=== PATIENT | female | born 1950 | race Caucasian/White ===

== ENCOUNTER → 2021-04-28 02:41 | Outpatient (CLI) | payer MEDICARE, SELFPAY ==
[2021-04-29 15:32] LABS: SARS-CoV-2 RNA PCR Negative
== END ==
PROVIDERS: PCP Family Medicine; Visit Provider Family Medicine
DX: R50.9 Fever, unspecified (principal); Z20.822 Contact with and (suspected) exposure to COVID-19
CPT/HCPCS: C9803; U0003; U0005

== ENCOUNTER → 2021-06-26 11:53 | Outpatient (CLI) | payer MEDICARE, SELFPAY ==
--- NOTE | ~2021-06-26 | DEXA_ITS ---
Bone Density Report Name: Marisa Rosario Age: 71 Sex: Female Ethnicity: White Date of : 1950 Indication: osteopenia; height loss; prior fracture; hysterectomy; postmenopausal Referring Provider: GAYATRI, RG Anne Study: Bone densitometry was performed. Exam Date: June 26, 2021 Accession number: [id number] Bone Density: Region BMD T-score Z-score Classification AP Spine (L1-L4) 0.830 -2.0 0.3 Osteopenia Femoral Neck (Left) 0.537 -2.8 -0.8 Osteoporosis Total Hip (Left) 0.688 -2.1 -0.4 Osteopenia Femoral Neck (Right) 0.553 -2.7 -0.7 Osteoporosis Total Hip (Right) 0.685 -2.1 -0.4 Osteopenia Total Hip Mean 0.687 -2.1 -0.4 Osteopenia World Health Organization criteria for BMD impression classify patients as: Normal (T-score at or above -1.0), Osteopenia (T-score between -1.0 and -2.5), or Osteoporosis (T-score at or below -2.5). 10-year Fracture Risk: FRAX not reported because: Some T-score for Spine Total or Hip Total or Femoral Neck at or below -2.5 Prior hip or vertebral fracture Previous Exams: Region Exam Age BMD T-score BMD Change BMD Change Date g/cm2 vs Baseline vs Previous AP Spine(L1-L4) 06/26/2021 71 0.830 -2.0 0.007 0.007 01/17/2019 68 0.823 -2.0 Total Hip(Left) 06/26/2021 71 0.688 -2.1 0.016 0.016 01/17/2019 68 0.672 -2.2 Total Hip(Right) 06/26/2021 71 0.685 -2.1 0.027 0.027 01/17/2019 68 0.658 -2.3 *Denotes significance at 95% confidence level, LSC for AP Spine = 0.022 g/cm2, LSC for Total Hip = 0.027 g/cm2 Clinical Information Provided by Patient: Have had a previous hip or vertebral fracture Has had a low trauma fracture Has used the following medications: Vitamin D Has the following medical conditions: Hysterectomy Patient maximum height was 64 Menopause Age: 53 No regular weight bearing exercise Drinks caffeinated beverages Onset of menses at age 11 Number of children 1 Impression: The patient has established osteoporosis, based on the Left Femoral Neck T-score and the existence of a prior fracture. The patient has risk factors, including: previous fracture. No significant bone loss was observed. Discussion: HIGH RISK OF FRACTURE. BONE DENSITY IS UNDESIRABLY LOW AT ONE OR MORE SKELETAL SITES, CONSISTENT WITH POSTMENOPAUSAL OSTEOPOROSIS. This patient's lowest T-score, in a patient who has previously fractured, meets the World Health Organization's
--- NOTE | ~2021-06-26 | MM_ITS ---
EXAMINATION: MM screening pia BI w samir HISTORY: Screening mammogram, family history of breast cancer in her mother. TECHNIQUE: Craniocaudal and mediolateral oblique 3-D tomosynthesis images were obtained and synthetic 2-D images were generated. CAD analysis was submitted and interpreted. COMPARISON: 01/17/2019 BREAST PARENCHYMAL COMPOSITION: The breasts are heterogeneously dense, which may obscure small masses . FINDINGS: There is no evidence of suspicious mass, calcification, or architectural distortion to sugg est malignancy in either breast. There has been no suspicious interval change. IMPRESSION: 1. No mammographic evidence of malignancy. 2. Recommend routine screening mammography in one year. BI-RADS Category 1: Negative Reviewed, dictated and finalized at location A.
== END ==
PROVIDERS: PCP Family Medicine; Visit Provider Family Medicine
DX: Z12.31 Encounter for screening mammogram for malignant neoplasm of breast (principal); Z78.0 Asymptomatic menopausal state; M85.88 Other specified disorders of bone density and structure, other site; M81.0 Age-related osteoporosis without current pathological fracture; M85.852 Other specified disorders of bone density and structure, left thigh; M85.851 Other specified disorders of bone density and structure, right thigh
CPT/HCPCS: 77063; 77067; 77080

== ENCOUNTER 2021-11-23 00:35 | Day surgery (SDC) | payer MEDICARE, SELFPAY ==
[2021-11-20 15:05] VITALS: BMI 23.4
[2021-11-23] VITALS (15 sets, daily range): BP systolic 119–164; BP diastolic 61–86; PULSE 63–86; RESP 12–22; TEMP 36.9; O2SAT 96–98; BMI 24.2
[2021-11-23 09:03] LABS: Basophils Absolute Auto 0.1 K/mm3 (0.0-0.1); Eosinophils Absolute Auto 0.2 K/mm3 (0-0.3); Eosinophils Percent Auto 2.6 % (0-4.4); Hematocrit 38.4 % (37.0-47.0); Hemoglobin 13.5 g/dL (12.0-15.0); Immature Granulocyte Absolute 0.04 K/mm3 (0.00-0.031); Immature Granulocyte Percent A 0.4 % (0-0.5); Lymphocytes Absolute Auto 1.07 K/mm3 (0.9-3.2); Lymphocytes Percent Auto 11.9 % (18.3-44.2); Mean Corpuscular HGB Conc 35.2 g/dl (32-36); Mean Corpuscular Hemoglobin 31.7 pg (26-34); Mean Corpuscular Volume 90.1 fl (80-100); Mean Platelet Volume 9.3 fl (7.4-10.4); Monocytes Absolute Auto 0.5 K/mm3 (0.1-0.6); Monocytes Percent Auto 5.1 % (2.6-8.5); Neutrophils Absolute Auto 7.1 K/mm3 (1.3-6.7); Platelet Count Result 594 k/mm3 (150-375); Red Blood Count 4.26 M/mm3 (4.2-5.4); Red Cell Distribution Width 14.4 % (11.5-14.5)
[2021-11-23 09:14] LABS: Prothrombin Time 12.8 Seconds (11.1-14.7)
[2021-11-23 09:18] LABS: Anion Gap 6 mmol/L (8-16); Blood Urea Nitrogen 11 mg/dL (7-17); Calcium 8.8 mg/dL (8.4-10.2); Carbon Dioxide 26 mmol/L (22-30); Chloride 106 mmol/L (98-107); Estimated CRCL calculation 45 ml/min; Estimated Glomerular Filt Rate > 60; Glucose 105 mg/dL (65-110); Potassium 3.8 mmol/L (3.4-5.0); Sodium 138 mmol/L (137-145)
--- NOTE | 2021-11-23 10:29 | WPDMODSED ---
Moderate Sedation Note-Pt Data Patient Data Diagnosis: Intermittent chest pain felt to be atypical of angina abnormal stress echo Present Complaint: intermittent chest discomfort Procedure to be performed/Plan: left heart catheterization Allergies Allergy/AdvReac Type Severity Reaction Status Date / Time No Known Allergies Allergy Verified 11/23/21 09:19 Home Medications Medication Instructions Recorded Confirmed Type loratadine 10 mg tablet 10 mg PO DAILY PRN 03/18/20 11/20/21 History Current Medications: Active Medications Sodium Chloride (Normal Saline Iv) 500 mls @ 100 mls/hr IV CONT .Q5H RITCHIE Sedation/Anesthesia: No previous sedation/anesthesia problems (including family history). [facility] Past Medical History Medical History (Updated 06/26/20 @ 10:49 by RUFINA Garcia) Adenomatous colon polyp Age-related osteoporosis without current pathological fracture Hemorrhoids History of basal cell carcinoma Family History Family History Father Carcinoma of colon, Onset Age: 89 Family history of emphysema Mother Family history of malignant neoplasm of male breast Family history of malignant neoplasm of breast in first degree relative, Onset Age: 69 Social History Social History Smoking status: Never smoker Smoking end date: 09/19/70 Alcohol intake: never Substance use type: does not use Living arrangements: alone Spiritual care concerns: No Mod Sed Physical Exam Physical Exam Pre Procedural Exam: Normal: Appearance, Neck, Throat, Airway, Lungs, Heart Size, Heart Rate, Heart Rhythm and Extremities Hours since solid foods: 12 Hours since liquid intake: 12 Mallampati Classification: class II Internal Medicine - PN: Obj Da Vital Signs Vital Signs: Vital Signs - 24 hr 11/23/21 08:57 Temperature 36.9 C Pulse Rate 79 Respiratory Rate 22 H Blood Pressure 144/74 H Pulse Oximetry 96 Meds/Results Medications: Active Medications Generic Name Dose Route Start Last Admin Trade Name Freq PRN Reason Stop Dose Admin Sodium Chloride 500 mls @ 100 mls/hr 11/23/21 08:50 Normal Saline Iv IV CONT .Q5H RITCHIE Labs CBC & Chem 7: 11/23/21 08:49 11/23/21 08:49 Labs: Laboratory Results - last 24 hr 11/23/21 11/23/2122 08:49 08:49 08:49 WBC 9.0 RBC 4.26 Hgb 13.5 Hct 38.4 MCV 90.1 MCH 31.7 MCHC 35.2 RDW 14.4 Plt Count 594 H MPV 9.3 Immature Gran % (Auto) 0.4 Neut % (Auto) 79.0 H Lymph % (Auto) 11.9 L Tucker % (Auto) 5.1 Eos % (Auto) 2.6 Baso % (Auto) 1.0 Lymph # (Auto) 1.07 Tucker # (Auto) 0.5 Eos # (Auto) 0.2 Baso # (Auto) 0.1 Abs Immat Gran (auto) 0.04 H Absolute Neuts (auto) 7.1 H Absolute Nucleated RBC 0.0 Nucleated RBC % 0.0 PT 12.8 INR 1.0 Sodium 138 Potassium 3.8 Chloride 106 Carbon Dioxide 26 Anion Gap 6 L BUN 11 Creatinine 0.80 Estim Creat Clear Calc 45 Estimated GFR > 60 Glucose 105 Calcium 8.8 ASA Classification/Sedation ASA Classification/Sedation ASA Class: II Emergent: No Risks: Risks, benefits and alternatives explained and patient/family accepted plan for sedation. Patient re-evaluated immediately prior to sedation.
--- NOTE | 2021-11-23 10:59 | WPDCARDPROC ---
Cardiac Cath Procedure Note Date of procedure:: 11/23/21 Performing physician:: Edgar Holt MD Indication:: intermittent chest pain abnormal stress echo Brief clinical history:: this is a 71-year-old woman who has been having intermittent chest pain after a stress of the in the family in recent months. The symptoms are atypical of angina by history. Stress echo however was abnormal suggesting inferior ischemia. Procedure Procedure performed:: Left ventriculogram coronary angiogram Sedation/Medication given:: fentanyl 50 mg Versed 2 mg case start time 10:43 a.m. case end time 10:57 a.m. sedation provided by Alice Santos RN, trained observer Access site:: right femoral artery Estimated blood loss:: 25 cc Procedure note:: patient was brought to the cardiac catheterization lab in the postabsorptive state where the right femoral triangle was prepared and draped in the normal fashion. Anesthesia was provided 1% lidocaine infiltrated locally. Using the modified Seldinger technique a 5 [place] sheath was placed into the femoral artery after which left heart catheterization was carried out. A 5 [place] angled pigtail catheter was used to measure left-sided hemodynamics and to inject LV g in the DINERO projection. After this standard 5 [place] FL4 catheter was used to engage the left coronary artery in multiple projections the right coronary artery was engaged and injected using a standard 5 [place] JR4 catheter. The cineangiograms were then reviewed and the case was terminated. An angiogram was done of the femoral artery through the sheath after which I elected to have the sheath removed with direct manual compression. Patient left the medical laboratory technologist without any evident complications and no evidence of a groin hematoma. Findings:: Hemodynamics: The central aortic pressure is 156 over 74 left ventricle 156/0 end diastolic pressure 12. No gradient on pullback across the aortic. Left ventricle: The LV is normal in size all segments contract appropriately the global ejection fraction I visually estimate to be 50-55%. The left main coronary artery is short but widely patent left anterior descending is a medium caliber artery that extends down to but does not go around the apex. The LAD and its branches are smooth and angiographically normal in appearance. Circumflex is a medium caliber artery giving rise to the marginal branches and a posterior branch. The circumflex also smooth and angiographically normal in appearance. The right coronary artery is large caliber and dominant to the posterior circulation. The right coronary artery is smooth and angiographically normal in appearance. Conclusion:: 1. Right coronary dominant circulation with no evidence of coronary artery disease 2. preserved left ventricular systolic function 3. based on these findings the stress echo appears to be a false-positive in the patient's chest pain symptoms are not ischemically mediated Edgar Holt MD [facility]
== END 2021-11-23 17:00 | disposition home or self-care (01) ==
PROVIDERS: PCP Family Medicine; Visit Provider Specialist
PROC: 4A023N7 Measurement of Cardiac Sampling and Pressure, Left Heart, Percutaneous Approach (ICD-10-PCS; CPT 93452; principal; 2021-11-23 10:00)
DX: R94.39 Abnormal result of other cardiovascular function study (principal); R07.89 Other chest pain
CPT/HCPCS: 36415; 80048; 85025; 85610; 93458; C1887; C1894; J1644; J2250; J3010; J7040

== ENCOUNTER 2023-02-09 14:19 | Outpatient (CLI) | payer MEDICARE, SELFPAY ==
[2023-02-09 14:39] LABS: Basophils Absolute Auto 0.1 K/mm3 (0.0-0.1); Eosinophils Absolute Auto 0.2 K/mm3 (0-0.3); Eosinophils Percent Auto 1.8 % (0-4.4); Hematocrit 39.9 % (37.0-47.0); Hemoglobin 13.5 g/dL (12.0-15.0); Immature Granulocyte Absolute 0.02 K/mm3 (0.00-0.031); Immature Granulocyte Percent A 0.2 % (0-0.5); Lymphocytes Absolute Auto 1.03 K/mm3 (0.9-3.2); Lymphocytes Percent Auto 11.4 % (18.3-44.2); Mean Corpuscular HGB Conc 33.8 g/dl (32-36); Mean Corpuscular Hemoglobin 31.1 pg (26-34); Mean Corpuscular Volume 91.9 fl (80-100); Mean Platelet Volume 9.5 fl (7.4-10.4); Monocytes Absolute Auto 0.4 K/mm3 (0.1-0.6); Monocytes Percent Auto 4.7 % (2.6-8.5); Neutrophils Absolute Auto 7.3 K/mm3 (1.3-6.7); Neutrophils Percent Auto 80.9 % (45.5-73.1); Platelet Count Result 674 k/mm3 (150-375); Red Blood Count 4.34 M/mm3 (4.2-5.4); Red Cell Distribution Width 14.2 % (11.5-14.5); White Blood Count 9.1 K/mm3 (4.5-10.0)
[2023-02-09 18:02] LABS: Iron 122 ug/dL (37-170)
[2023-02-09 18:12] LABS: Percent Iron Saturation 27 % (20-50)
[2023-02-09 18:23] LABS: Alanine Aminotransferase 27 U/L (6-35); Albumin Level 4.4 g/dL (3.5-5.1); Alkaline Phosphatase 94 U/L (38-126); Anion Gap 6 mmol/L (8-16); Aspartate Amino Transferase 34 U/L (14-36); Bilirubin,Total 0.8 mg/dL (0.2-1.3); Blood Urea Nitrogen 14 mg/dL (7-17); Carbon Dioxide 29 mmol/L (22-30); Chloride 103 mmol/L (98-107); Estimated Glomerular Filt Rate > 60; Glucose 95 mg/dL (65-110); Potassium 3.9 mmol/L (3.4-5.0); Sodium 138 mmol/L (137-145)
== END 2023-02-09 14:20 | disposition home or self-care (01) ==
LOC: ANHLAB 14:20
PROVIDERS: PCP Nurse Practitioner Family; Visit Provider Internal Medicine Hematology & Oncology
DX: D47.3 Essential (hemorrhagic) thrombocythemia (principal)
CPT/HCPCS: 36415; 80053; 82728; 83540; 83550; 85025

== ENCOUNTER 2023-03-29 11:53 | Outpatient (CLI) | payer MEDICARE, SELFPAY ==
[2023-03-29 12:00] LABS: Kit Draw Collected
== END 2023-03-29 11:54 | disposition home or self-care (01) ==
LOC: ANHLAB 11:54
PROVIDERS: PCP Nurse Practitioner Family; Visit Provider Internal Medicine Hematology & Oncology
DX: L98.9 Disorder of the skin and subcutaneous tissue, unspecified (principal)
CPT/HCPCS: 36415

== ENCOUNTER 2023-04-20 13:16 | Outpatient (CLI) | payer MEDICARE, SELFPAY ==
[2023-04-20 13:28] LABS: Basophils Absolute Auto 0.1 K/mm3 (0.0-0.1); Basophils Percent Auto 0.9 % (0.2-1.2); Eosinophils Absolute Auto 0.2 K/mm3 (0-0.3); Eosinophils Percent Auto 1.8 % (0-4.4); Hematocrit 39.1 % (37.0-47.0); Hemoglobin 13.4 g/dL (12.0-15.0); Immature Granulocyte Absolute 0.04 K/mm3 (0.00-0.031); Immature Granulocyte Percent A 0.4 % (0-0.5); Lymphocytes Absolute Auto 0.95 K/mm3 (0.9-3.2); Lymphocytes Percent Auto 9.6 % (18.3-44.2); Mean Corpuscular HGB Conc 34.3 g/dl (32-36); Mean Corpuscular Hemoglobin 32.1 pg (26-34); Mean Corpuscular Volume 93.5 fl (80-100); Mean Platelet Volume 9.1 fl (7.4-10.4); Monocytes Absolute Auto 0.5 K/mm3 (0.1-0.6); Monocytes Percent Auto 4.9 % (2.6-8.5); Neutrophils Absolute Auto 8.2 K/mm3 (1.3-6.7); Neutrophils Percent Auto 82.4 % (45.5-73.1); Platelet Count Result 617 k/mm3 (150-375); Red Blood Count 4.18 M/mm3 (4.2-5.4); Red Cell Distribution Width 15.3 % (11.5-14.5); White Blood Count 9.9 K/mm3 (4.5-10.0)
[2023-04-20 13:31] LABS: Blood Urea Nitrogen 12 mg/dL (8-26); Carbon Dioxide 26 mmol/L (22-30); Chloride 101 mmol/L (98-109); Estimated Glomerular Filt Rate > 60; Glucose 102 mg/dL (70-105); Ionized Calcium (POC) 1.25 mmol/L (1.11-1.31); Potassium 3.9 mmol/L (3.5-4.9); Sodium 139 mmol/L (138-146)
== END 2023-04-20 13:17 | disposition home or self-care (01) ==
LOC: ANHLAB 13:17
PROVIDERS: PCP Nurse Practitioner Family; Visit Provider Internal Medicine Hematology & Oncology
DX: D47.3 Essential (hemorrhagic) thrombocythemia (principal)
CPT/HCPCS: 36415; 80047; 85025

== ENCOUNTER 2023-05-17 14:15 | Outpatient (CLI) | payer MEDICARE, SELFPAY ==
[2023-05-17 14:26] LABS: Hematocrit 39.2 % (37.0-47.0); Hemoglobin 13.8 g/dL (12.0-15.0); Mean Corpuscular HGB Conc 35.2 g/dl (32-36); Mean Corpuscular Hemoglobin 32.7 pg (26-34); Mean Corpuscular Volume 92.9 fl (80-100); Mean Platelet Volume 9.1 fl (7.4-10.4); Platelet Count Result 594 k/mm3 (150-375); Red Blood Count 4.22 M/mm3 (4.2-5.4); Red Cell Distribution Width 15.3 % (11.5-14.5); White Blood Count 9.1 K/mm3 (4.5-10.0)
[2023-05-17 14:27] LABS: Basophils Absolute Auto 0.1 K/mm3 (0.0-0.1); Basophils Percent Auto 1.3 % (0.2-1.2); Eosinophils Absolute Auto 0.2 K/mm3 (0-0.3); Eosinophils Percent Auto 2.7 % (0-4.4); Immature Granulocyte Absolute 0.03 K/mm3 (0.00-0.031); Immature Granulocyte Percent A 0.3 % (0-0.5); Lymphocytes Absolute Auto 1.06 K/mm3 (0.9-3.2); Lymphocytes Percent Auto 11.7 % (18.3-44.2); Monocytes Absolute Auto 0.5 K/mm3 (0.1-0.6); Monocytes Percent Auto 5.2 % (2.6-8.5); Neutrophils Absolute Auto 7.1 K/mm3 (1.3-6.7); Neutrophils Percent Auto 78.8 % (45.5-73.1)
[2023-05-17 14:32] LABS: Blood Urea Nitrogen 9 mg/dL (8-26); Carbon Dioxide 29 mmol/L (22-30); Chloride 99 mmol/L (98-109); Estimated Glomerular Filt Rate 48; Glucose 89 mg/dL (70-105); Ionized Calcium (POC) 1.19 mmol/L (1.11-1.31); Potassium 3.6 mmol/L (3.5-4.9); Sodium 139 mmol/L (138-146)
== END 2023-05-17 14:16 | disposition home or self-care (01) ==
LOC: ANHLAB 14:17
PROVIDERS: PCP Nurse Practitioner Family; Visit Provider Internal Medicine Hematology & Oncology
DX: D47.3 Essential (hemorrhagic) thrombocythemia (principal)
CPT/HCPCS: 36415; 80047; 85025

== ENCOUNTER 2023-06-14 13:10 | Outpatient (CLI) | payer MEDICARE, SELFPAY ==
[2023-06-14 13:22] LABS: Basophils Absolute Auto 0.1 K/mm3 (0.0-0.1); Basophils Percent Auto 0.9 % (0.2-1.2); Eosinophils Absolute Auto 0.2 K/mm3 (0-0.3); Hematocrit 38.9 % (37.0-47.0); Hemoglobin 13.4 g/dL (12.0-15.0); Immature Granulocyte Absolute 0.03 K/mm3 (0.00-0.031); Immature Granulocyte Percent A 0.3 % (0-0.5); Lymphocytes Absolute Auto 1.19 K/mm3 (0.9-3.2); Lymphocytes Percent Auto 12.8 % (18.3-44.2); Mean Corpuscular HGB Conc 34.4 g/dl (32-36); Mean Corpuscular Volume 95.8 fl (80-100); Monocytes Absolute Auto 0.4 K/mm3 (0.1-0.6); Monocytes Percent Auto 4.5 % (2.6-8.5); Neutrophils Absolute Auto 7.4 K/mm3 (1.3-6.7); Neutrophils Percent Auto 79.5 % (45.5-73.1); Platelet Count Result 561 k/mm3 (150-375); Red Blood Count 4.06 M/mm3 (4.2-5.4); Red Cell Distribution Width 15.6 % (11.5-14.5); White Blood Count 9.3 K/mm3 (4.5-10.0)
[2023-06-14 13:27] LABS: Blood Urea Nitrogen 12 mg/dL (8-26); Carbon Dioxide 27 mmol/L (22-30); Chloride 101 mmol/L (98-109); Estimated Glomerular Filt Rate > 60; Glucose 116 mg/dL (70-105); Ionized Calcium (POC) 1.15 mmol/L (1.11-1.31); Potassium 3.7 mmol/L (3.5-4.9); Sodium 139 mmol/L (138-146)
== END 2023-06-14 13:11 | disposition home or self-care (01) ==
LOC: ANHLAB 13:13
PROVIDERS: PCP Nurse Practitioner Family; Visit Provider Internal Medicine Hematology & Oncology
DX: D47.3 Essential (hemorrhagic) thrombocythemia (principal)
CPT/HCPCS: 36415; 80047; 85025

== ENCOUNTER → 2023-06-20 13:58 | Outpatient (CLI) | payer MEDICARE, SELFPAY ==
--- NOTE | ~2023-06-20 | MM_ITS ---
EXAMINATION: MM screening pia BI w samir HISTORY: Screening mammogram, family history of breast cancer in her mother. TECHNIQUE: Craniocaudal and mediolateral oblique 3-D tomosynthesis images were obtained and synthetic 2-D images were generated. CAD analysis was submitted and interpreted. COMPARISON: 06/26/2021, 01/17/2019 BREAST PARENCHYMAL COMPOSITION: The breasts are heterogeneously dense, which may obscure small masses . FINDINGS: No suspicious mass, calcification, or architectural distortion are identified in either cooper ast to suggest malignancy. There has been no suspicious interval change. IMPRESSION: 1. No mammographic evidence of malignancy. 2. Recommend routine screening mammography in one year. BI-RADS Category 1: Negative Reviewed, dictated and finalized at location A.
== END ==
PROVIDERS: PCP Family Medicine; Visit Provider Family Medicine
DX: Z12.31 Encounter for screening mammogram for malignant neoplasm of breast (principal)
CPT/HCPCS: 77063; 77067

== ENCOUNTER 2023-07-18 14:09 | Outpatient (CLI) | payer MEDICARE, SELFPAY ==
[2023-07-18 14:27] LABS: Basophils Absolute Auto 0.1 K/mm3 (0.0-0.1); Basophils Percent Auto 0.9 % (0.2-1.2); Eosinophils Absolute Auto 0.2 K/mm3 (0-0.3); Eosinophils Percent Auto 1.6 % (0-4.4); Immature Granulocyte Absolute 0.04 K/mm3 (0.00-0.031); Immature Granulocyte Percent A 0.4 % (0-0.5); Lymphocytes Absolute Auto 1.07 K/mm3 (0.9-3.2); Lymphocytes Percent Auto 11.2 % (18.3-44.2); Mean Corpuscular HGB Conc 34.2 g/dl (32-36); Mean Corpuscular Hemoglobin 33.3 pg (26-34); Mean Corpuscular Volume 97.4 fl (80-100); Mean Platelet Volume 9.5 fl (7.4-10.4); Monocytes Absolute Auto 0.4 K/mm3 (0.1-0.6); Monocytes Percent Auto 4.5 % (2.6-8.5); Neutrophils Absolute Auto 7.7 K/mm3 (1.3-6.7); Neutrophils Percent Auto 81.4 % (45.5-73.1); Platelet Count Result 592 k/mm3 (150-375); Red Cell Distribution Width 14.7 % (11.5-14.5); White Blood Count 9.5 K/mm3 (4.5-10.0)
[2023-07-18 14:31] LABS: Blood Urea Nitrogen 10 mg/dL (8-26); Carbon Dioxide 28 mmol/L (22-30); Chloride 100 mmol/L (98-109); Estimated Glomerular Filt Rate > 60; Glucose 97 mg/dL (70-105); Ionized Calcium (POC) 1.18 mmol/L (1.11-1.31); Potassium 3.4 mmol/L (3.5-4.9); Sodium 139 mmol/L (138-146)
== END 2023-07-18 14:10 | disposition home or self-care (01) ==
LOC: ANHLAB 14:12
PROVIDERS: Visit Provider Internal Medicine Hematology & Oncology
DX: D47.3 Essential (hemorrhagic) thrombocythemia (principal)
CPT/HCPCS: 36415; 80047; 85025

== ENCOUNTER → 2023-07-20 12:23 | Outpatient (CLI) | payer MEDICARE, SELFPAY ==
--- NOTE | ~2023-07-20 | US_ITS ---
EXAMINATION: US soft tissue head and neck DATE: 07/20/2023 12:53 INDICATION: Right cervical lymphadenopathy. Trigeminal neuralgia. TECHNIQUE: Multiple grayscale and Doppler ultrasound images of the head and neck were obtained. COMPARISON: None FINDINGS: There are normal lymph nodes in the neck bilaterally. IMPRESSION: 1. No abnormal neck mass or lymphadenopathy. Reviewed, dictated and finalized at location E.
== END ==
PROVIDERS: PCP Family Medicine; Visit Provider Nurse Practitioner Family
DX: G50.0 Trigeminal neuralgia (principal)
CPT/HCPCS: 76536

== ENCOUNTER 2023-08-18 14:18 | Outpatient (CLI) | payer MEDICARE, SELFPAY ==
[2023-08-18 14:31] LABS: Basophils Absolute Auto 0.1 K/mm3 (0.0-0.1); Eosinophils Absolute Auto 0.3 K/mm3 (0-0.3); Eosinophils Percent Auto 2.8 % (0-4.4); Hematocrit 35.9 % (37.0-47.0); Hemoglobin 12.4 g/dL (12.0-15.0); Immature Granulocyte Absolute 0.04 K/mm3 (0.00-0.031); Immature Granulocyte Percent A 0.4 % (0-0.5); Lymphocytes Absolute Auto 1.04 K/mm3 (0.9-3.2); Lymphocytes Percent Auto 10.2 % (18.3-44.2); Mean Corpuscular HGB Conc 34.5 g/dl (32-36); Mean Corpuscular Hemoglobin 32.8 pg (26-34); Monocytes Absolute Auto 0.5 K/mm3 (0.1-0.6); Neutrophils Absolute Auto 8.2 K/mm3 (1.3-6.7); Neutrophils Percent Auto 80.6 % (45.5-73.1); Platelet Count Result 338 k/mm3 (150-375); Red Blood Count 3.78 M/mm3 (4.2-5.4); Red Cell Distribution Width 13.6 % (11.5-14.5); White Blood Count 10.2 K/mm3 (4.5-10.0)
[2023-08-18 14:35] LABS: Blood Urea Nitrogen 6 mg/dL (8-26); Carbon Dioxide 27 mmol/L (22-30); Chloride 100 mmol/L (98-109); Estimated Glomerular Filt Rate > 60; Glucose 104 mg/dL (70-105); Ionized Calcium (POC) 1.22 mmol/L (1.11-1.31); Potassium 3.3 mmol/L (3.5-4.9); Sodium 140 mmol/L (138-146)
== END 2023-08-18 14:19 | disposition home or self-care (01) ==
LOC: ANHLAB 14:20
PROVIDERS: PCP Family Medicine; Visit Provider Internal Medicine Hematology & Oncology
DX: D47.3 Essential (hemorrhagic) thrombocythemia (principal)
CPT/HCPCS: 36415; 80047; 85025

== ENCOUNTER 2023-08-26 08:20 | Outpatient (CLI) | payer MEDICARE, SELFPAY ==
--- NOTE | ~2023-08-26 | CT_ITS ---
CT of the Abdomen and Pelvis: Indication: Abdominal pain Technique: 2.5 mm axial scans were obtained through the abdomen and pelvis following intravenous adm inistration of 100 cc of Omnipaque 350. Dose reduction technique was used on this scan by utilizing a utomated exposure control and iterative reconstruction technique. The dose-length product (DLP) was 3 54.62 mGy-cm. Findings: Scans through the lung bases are unremarkable. The liver, pancreas, adrenals and kidneys are within normal limits. Small calcified gallstones are pr esent. There is a 2.8 cm hypodense splenic lesion present, as well as several additional tiny subcent imeter low-density splenic lesions. No evidence of aortic aneurysm. No lymphadenopathy. Possible extensive large bowel wall thickening versus underdistention. No bowel obstruction. No absce ss or free air. Images through the pelvis were performed. Urinary bladder unremarkable. No pelvic mass seen. No ascit es. Mild compression deformity of L1 is present, likely chronic. Impression: Suspected extensive large bowel wall thickening, most consistent with infectious/inflammatory colitis . Artifactual thickening due to underdistention is a potential alternative consideration. Correlate c linically. Cholelithiasis. C-spine lesions, as above, indeterminate, though statistically most likely benign. Reviewed, dictated and finalized at location . [employer] Impression: Suspected extensive large bowel wall thickening, most consistent with infectiou s/inflammatory colitis. Artifactual thickening due to underdistention is a pote ntial alternative consideration. Correlate clinically. Cholelithiasis. C-spine lesions, as above, indeterminate, though statistically most likely jossy gn.
== END 2023-08-26 08:21 | disposition home or self-care (01) ==
PROVIDERS: PCP Family Medicine; Visit Provider Internal Medicine Hematology & Oncology
DX: R10.30 Lower abdominal pain, unspecified (principal); K80.20 Calculus of gallbladder without cholecystitis without obstruction
CPT/HCPCS: 74177; Q9967

== ENCOUNTER 2023-09-09 12:27 | Outpatient (CLI) | payer MEDICARE, SELFPAY ==
[2023-09-09 12:49] LABS: Basophils Absolute Auto 0.1 K/mm3 (0.0-0.1); Eosinophils Absolute Auto 0.2 K/mm3 (0-0.3); Eosinophils Percent Auto 2.3 % (0-4.4); Hematocrit 35.9 % (37.0-47.0); Hemoglobin 12.1 g/dL (12.0-15.0); Immature Granulocyte Absolute 0.04 K/mm3 (0.00-0.031); Immature Granulocyte Percent A 0.4 % (0-0.5); Lymphocytes Absolute Auto 1.01 K/mm3 (0.9-3.2); Mean Corpuscular HGB Conc 33.7 g/dl (32-36); Mean Platelet Volume 10.4 fl (7.4-10.4); Monocytes Absolute Auto 0.6 K/mm3 (0.1-0.6); Neutrophils Absolute Auto 7.3 K/mm3 (1.3-6.7); Neutrophils Percent Auto 79.3 % (45.5-73.1); Platelet Count Result 362 k/mm3 (150-375); Red Blood Count 3.78 M/mm3 (4.2-5.4); Red Cell Distribution Width 13.5 % (11.5-14.5); White Blood Count 9.2 K/mm3 (4.5-10.0)
[2023-09-09 16:03] LABS: Anion Gap 8 mmol/L (8-16); Blood Urea Nitrogen 12 mg/dL (7-17); Calcium 9.2 mg/dL (8.4-10.2); Carbon Dioxide 27 mmol/L (22-30); Chloride 104 mmol/L (98-107); Estimated Glomerular Filt Rate > 60; Glucose 99 mg/dL (65-110); Potassium 3.9 mmol/L (3.4-5.0); Sodium 139 mmol/L (137-145)
== END 2023-09-09 12:28 | disposition home or self-care (01) ==
LOC: ANHLAB 12:29
PROVIDERS: PCP Family Medicine; Visit Provider Internal Medicine Hematology & Oncology
DX: D47.3 Essential (hemorrhagic) thrombocythemia (principal)
CPT/HCPCS: 36415; 80048; 85025

== ENCOUNTER 2023-09-29 11:17 | Outpatient (CLI) | payer MEDICARE, SELFPAY ==
[2023-09-29 11:32] LABS: Basophils Absolute Auto 0.1 K/mm3 (0.0-0.1); Basophils Percent Auto 1.2 % (0.2-1.2); Eosinophils Absolute Auto 0.2 K/mm3 (0-0.3); Eosinophils Percent Auto 2.1 % (0-4.4); Hematocrit 35.8 % (37.0-47.0); Hemoglobin 12.3 g/dL (12.0-15.0); Immature Granulocyte Absolute 0.03 K/mm3 (0.00-0.031); Immature Granulocyte Percent A 0.3 % (0-0.5); Lymphocytes Absolute Auto 1.21 K/mm3 (0.9-3.2); Lymphocytes Percent Auto 13.5 % (18.3-44.2); Mean Corpuscular HGB Conc 34.4 g/dl (32-36); Mean Corpuscular Hemoglobin 31.9 pg (26-34); Mean Corpuscular Volume 92.7 fl (80-100); Mean Platelet Volume 10.1 fl (7.4-10.4); Monocytes Absolute Auto 0.5 K/mm3 (0.1-0.6); Monocytes Percent Auto 5.7 % (2.6-8.5); Neutrophils Absolute Auto 6.9 K/mm3 (1.3-6.7); Neutrophils Percent Auto 77.2 % (45.5-73.1); Platelet Count Result 600 k/mm3 (150-375); Red Blood Count 3.86 M/mm3 (4.2-5.4); Red Cell Distribution Width 13.3 % (11.5-14.5); White Blood Count 8.9 K/mm3 (4.5-10.0)
[2023-09-29 11:36] LABS: Blood Urea Nitrogen 13 mg/dL (8-26); Carbon Dioxide 26 mmol/L (22-30); Chloride 102 mmol/L (98-109); Estimated Glomerular Filt Rate > 60; Glucose 106 mg/dL (70-105); Potassium 3.9 mmol/L (3.5-4.9); Sodium 141 mmol/L (138-146)
== END 2023-09-29 11:18 | disposition home or self-care (01) ==
LOC: ANHLAB 11:19
PROVIDERS: PCP Family Medicine; Visit Provider Internal Medicine Hematology & Oncology
DX: D47.3 Essential (hemorrhagic) thrombocythemia (principal)
CPT/HCPCS: 36415; 80047; 85025

== ENCOUNTER 2023-11-10 11:10 | Outpatient (CLI) | payer MEDICARE, SELFPAY ==
[2023-11-10 11:31] LABS: Basophils Absolute Auto 0.1 K/mm3 (0.0-0.1); Eosinophils Absolute Auto 0.2 K/mm3 (0-0.3); Eosinophils Percent Auto 2.4 % (0-4.4); Hematocrit 37.1 % (37.0-47.0); Hemoglobin 12.6 g/dL (12.0-15.0); Immature Granulocyte Absolute 0.03 K/mm3 (0.00-0.031); Immature Granulocyte Percent A 0.4 % (0-0.5); Lymphocytes Absolute Auto 1.02 K/mm3 (0.9-3.2); Lymphocytes Percent Auto 12.2 % (18.3-44.2); Mean Corpuscular Hemoglobin 31.3 pg (26-34); Mean Corpuscular Volume 92.1 fl (80-100); Mean Platelet Volume 10.2 fl (7.4-10.4); Monocytes Absolute Auto 0.5 K/mm3 (0.1-0.6); Monocytes Percent Auto 5.6 % (2.6-8.5); Neutrophils Absolute Auto 6.6 K/mm3 (1.3-6.7); Neutrophils Percent Auto 78.4 % (45.5-73.1); Platelet Count Result 386 k/mm3 (150-375); Red Blood Count 4.03 M/mm3 (4.2-5.4); Red Cell Distribution Width 13.5 % (11.5-14.5); White Blood Count 8.4 K/mm3 (4.5-10.0)
[2023-11-10 11:35] LABS: Blood Urea Nitrogen 14 mg/dL (8-26); Carbon Dioxide 30 mmol/L (22-30); Chloride 101 mmol/L (98-109); Estimated Glomerular Filt Rate > 60; Glucose 70 mg/dL (70-105); Ionized Calcium (POC) 1.27 mmol/L (1.11-1.31); Potassium 3.9 mmol/L (3.5-4.9); Sodium 141 mmol/L (138-146)
== END 2023-11-10 11:11 | disposition home or self-care (01) ==
LOC: ANHLAB 11:13
PROVIDERS: PCP Family Medicine; Visit Provider Internal Medicine Hematology & Oncology
DX: D47.3 Essential (hemorrhagic) thrombocythemia (principal)
CPT/HCPCS: 36415; 80047; 85025

== ENCOUNTER 2023-11-19 11:11 | Emergency (ER) | payer MEDICARE, SELFPAY ==
--- NOTE | 2023-11-19 11:22 | ED.GENADULT ---
HPI - General Adult General Chief complaint: Upper Respiratory Infection Stated complaint: sore throat,cough Source: patient, RN notes reviewed and old records reviewed Mode of arrival: ambulatory Limitations: no limitations History of Present Illness HPI narrative: 73-year-old female presents to [facility] with complaint of cough, congestion, sore throat, fatigue, myalgias that started Tuesday. Patient states taking [id number] medications with no relief. Patient denies chest pain, shortness of breath, weakness, dizziness. Related Data Home Medications Medication Instructions Recorded Confirmed anagrelide 0.5 mg capsule 0.5 mg PO DIRECTED 11/19/23 pantoprazole 40 mg tablet,delayed 40 mg PO DAILY 11/19/23 11/19/23 release Allergies Allergy/AdvReac Type Severity Reaction Status Date / Time No Known Allergies Allergy Verified 11/19/23 11:17 Review of Systems Constitutional: Constitutional: Reports no additional constitutional complaints, Reports body ache(s), Denies chills, Reports fatigue, Denies fever(s) and Denies headache(s) Eyes: Eyes: Reports no additional eye complaints and Denies blurry vision ENT: Reports system reviewed and no additional complaints, except as documented, Denies vertigo, Denies dizziness, Denies ear discharge, Denies otalgia, Denies facial pain, Denies headache(s), Reports nasal congestion, Reports nasal discharge, Denies sinus pain, Reports sinus pressure and Reports sore throat Cardiovascular: Cardiovascular: Reports no additional cardiovascular complaints, Denies chest pain, Denies chest pain at rest, Denies rapid heart rate and Denies dyspnea Respiratory: Respiratory: Reports no additional respiratory complaints, Reports chest congestion, Reports cough, Denies pain on inspiration, Denies pain with cough and Denies dyspnea Gastrointestinal: Gastrointestinal: Denies abdominal pain, Denies diarrhea, Denies nausea and Denies vomiting Integumentary/Breasts: Skin/Breast: Denies rash Neurologic: Reports system reviewed and no additional complaints, except as documented, Denies vertigo, Denies dizziness and Denies headache(s) Endocrine: Endocrine: Denies fatigue PMFSH Past Medical History Medical History Adenomatous colon polyp Age-related osteoporosis without current pathological fracture Hemorrhoids History of basal cell carcinoma Family History Family History Father Carcinoma of colon, Onset Age: 89 Family history of emphysema Mother Family history of malignant neoplasm of male breast Family history of malignant neoplasm of breast in first degree relative, Onset Age: 69 Social History Social History Smoking status: Never smoker Smoking end date: 09/19/70 Alcohol intake: never Substance use type: does not use Lack of Transportation: No Lack of Food: Never True Current Housing: I Have Housing Concerned About Future Housing: No Difficulty Paying Gas/Electric Bills: No Difficulty Paying for Meds: No Currently Unemployed: No Education: High School Diploma/GED Difficulty w/ Childcare or Family Care: No Living arrangements: alone Spiritual care concerns: No Comments At the time of my signature, I reviewed and agree with the nursing past medical, surgical, social, and family history. There is no relevant family history pertinent to the patient complaint. Exam Const: General: cooperative, healthy appearing, no acute distress and well nourished Nutritional Appearance: well nourished Orientation/consciousness: patient oriented x3 Limitations: no limitations HENMT: Head: normal to inspection and normocephalic Ears: external ears normal, TM's normal bilaterally, EAC's normal and mastoids normal Face/Nose/Sinus: Normal nasal mucous membranes and turbinates prese
[2023-11-19 11:25] VITALS: BP 157/83; PULSE 136; RESP 20; TEMP 36.7; O2SAT 97
--- NOTE | 2023-11-19 11:53 | ECG_ITS ---
Measurements Intervals [place] Rate: 123 P: 37 UT: 179 QRS: -52 QRSD: 117 T: 73 QT: 351 QTc: 504 Interpretive Statements SINUS TACHYCARDIA LEFT ANTERIOR FASCICULAR BLOCK LEFT VENTRICULAR HYPERTROPHY AND ST-T CHANGE CANNOT RULE OUT SEPTAL INFARCT, AGE INDETERMINATE BASELINE ARTIFACT- I, II, III, AVR, AVL, AVF, V2, V5-V6 ABNORMAL ECG NO PREVIOUS ECG AVAILABLE FOR COMPARISON Electronically Signed On 11-19-2023 16:54:54 EXAMINATION PROCTOR by Kuldeep Dumont D.O.
[2023-11-19 12:15] VITALS: PULSE 122
== END 2023-11-19 12:15 | disposition home or self-care (01) ==
PROVIDERS: Emergency Provider Registered Nurse; PCP Family Medicine
DX: B34.9 Viral infection, unspecified (principal); Z20.822 Contact with and (suspected) exposure to COVID-19; Z87.891 Personal history of nicotine dependence; M81.0 Age-related osteoporosis without current pathological fracture; Z85.828 Personal history of other malignant neoplasm of skin
CPT/HCPCS: 87081; 87426; 87804; 87880; 93005; 99213; G0463

== ENCOUNTER 2023-12-17 16:44 | Emergency (ER) | payer MEDICARE, SELFPAY ==
[2023-12-17] VITALS (11 sets, daily range): BP systolic 165–184; BP diastolic 82–90; PULSE 76–119; RESP 17–25; TEMP 36.5; O2SAT 96–100
--- NOTE | ~2023-12-17 | CT_ITS ---
EXAMINATION: CTA chest PE protocol DATE: 12/18/2023 02:26 INDICATION: Tachycardia. Elevated d-dimer. Hypertension. TECHNIQUE: Computed tomography angiography (CTA) of the chest was performed with 100 mL Omnipaque-350 intravenous contrast timed to evaluate the pulmonary arteries. Coronal maximum intensity projection 3D-reconstructions were created by the technologist. Automated exposure control and iterative reconst ruction technique were employed. Exam dose: 175.00 mGy-cm total exam DLP. COMPARISON: 12/17/2023 PA and lateral chest FINDINGS: There is diagnostic contrast enhancement of the pulmonary arteries and no evidence of pulmo nary embolism. No hilar or mediastinal mass lesion or lymphadenopathy. No thoracic aortic aneurysm. Mild cardiomegal y. No pericardial or pleural effusion. Discoid atelectasis or scarring, left lower lobe. Mild bilateral apical scarring. No pulmonary consol idation. Stable hypoattenuating splenic lesion compared to 08/26/2023, likely benign. IMPRESSION: No evidence of pulmonary embolism Reviewed, dictated and finalized at Location A. Reviewed, dictated and finalized at location A.
--- NOTE | ~2023-12-17 | XR_ITS ---
XR chest 2V DATE: 12/17/2023 22:43 INDICATION: Tachycardia. Elevated d-dimer. TECHNIQUE: PA and lateral views COMPARISON: None FINDINGS: Bilateral hyperinflation. Mild bilateral apical scarring. No pulmonary infiltrate or consol idation, pleural effusion or pulmonary vascular congestion or pneumothorax is detected. Borderline heart size. Aortic arch calcification, mild aortic unfolding. No hilar or mediastinal enla rgement. Mild thoracic dextroscoliosis. Osteopenia. IMPRESSION: Bilateral hyperinflation; no active pulmonary disease Reviewed, dictated and finalized at location A.
--- NOTE | 2023-12-17 16:52 | ECG_ITS ---
Measurements Intervals [place] Rate: 97 P: -3 NM: 180 QRS: -44 QRSD: 126 T: 73 QT: 371 QTc: 472 Interpretive Statements SINUS RHYTHM LEFT AXIS DEVIATION LEFT ATRIAL ENLARGEMENT LEFT VENTRICULAR HYPERTROPHY AND ST-T CHANGE CONSIDER INFERIOR INFARCT, AGE INDETERMINATE CONSIDER ANTERIOR INFARCT, AGE INDETERMINATE ABNORMAL ECG COMPARED TO ECG 11/19/2023 12:04:17 SINUS RHYTHM NOW PRESENT Electronically Signed On 12-17-2023 17:13:53 CDT by Kuldeep Dumont D.O.
--- NOTE | 2023-12-17 22:04 | ED.GENADULT ---
HPI - General Adult General Chief complaint: Recheck/Abnormal Lab/Rx Stated complaint: heart racing/ htn Time Seen by Provider: 12/17/23 22:03 Source: patient and family (daughter in law) Mode of arrival: ambulatory Limitations: no limitations History of Present Illness HPI narrative: Patient presents with episode of her heart racing. She denies any chest pain. She will occasionally be short of breath with episodes. Has noticed a few days of hypertension. No diarrhea. She take inagrilide to help her platelet count in the setting of a JAK2 mutation. Has previously see a purchasing expeditor and underwent catheterization. Also wore an event monitor many years ago for palpatations. Recently diagnosed with the flu and had a fever and cough. Generally feels weak. Her Fitbit watch showed a heart rate of 123 at home. Episodes last a few minutes , usually once a day or every few days but more frequent thus prompting ED visit. Her PCP will soon be changing from Manuela Brush (leaving soon) to Dr Yelitza Marroquin in [place] next month. Related Data Home Medications Medication Instructions Recorded Confirmed anagrelide 0.5 mg capsule 0.5 mg PO DIRECTED 11/19/23 pantoprazole 40 mg tablet,delayed 40 mg PO DAILY 11/19/23 11/19/23 release Allergies Allergy/AdvReac Type Severity Reaction Status Date / Time No Known Allergies Allergy Verified 11/19/23 11:17 [facility] Past Medical History Medical History Adenomatous colon polyp Age-related osteoporosis without current pathological fracture Hemorrhoids History of basal cell carcinoma JAK2 gene mutation Family History Family History Father Carcinoma of colon, Onset Age: 89 Family history of emphysema Mother Family history of malignant neoplasm of male breast Family history of malignant neoplasm of breast in first degree relative, Onset Age: 69 Social History Social History (Updated 12/19/23 @ 09:07 by Kary Adkins MD) Smoking status: Never smoker Smoking end date: 09/19/70 Alcohol intake: never Substance use type: does not use Lack of Transportation: No Lack of Food: Never True Current Housing: I Have Housing Concerned About Future Housing: No Difficulty Paying Gas/Electric Bills: No Difficulty Paying for Meds: No Currently Unemployed: No Education: High School Diploma/GED Difficulty w/ Childcare or Family Care: No Living arrangements: alone Additional occupation/education comments: formerly worked at [employer] Spiritual care concerns: No Exam Narrative: GENERAL: Well-appearing, well-nourished, and in no acute distress. HEAD: Normocephalic, atraumatic. EYES: Non injected, non icteric ENT: Nares clear, no rhinorrhea or epistaxis. NECK: Supple. CHEST: Clear to auscultation. No respiratory distress. No wheezes/crackles/consolidation. HEART: Tachycardic rate and rhythm. . ABDOMEN: Soft, nondistended. EXTREMITIES: Normal range of motion. No edema. SKIN: Warm, dry, no rash. NEURO: No focal deficits. Alert and oriented x3. PSYCH: Normal mood and affect. Course Vital Signs Vital signs: Vital Signs Temperature 97.7 F 12/17/23 16:48 Pulse Rate 119 H 12/17/23 16:48 Respiratory Rate 20 12/17/23 16:48 Blood Pressure 165/88 H 12/17/23 16:48 Pulse Oximetry 98 12/17/23 16:48 Oxygen Delivery Room Air 12/17/23 16:48 Temperature 97.7 F 12/17/23 16:48 Pulse Rate 81 12/18/23 07:23 Respiratory Rate 18 12/18/23 07:23 Blood Pressure 170/94 H 12/18/23 07:23 Pulse Oximetry 97 12/18/23 07:23 Oxygen Delivery Room Air 12/17/23 16:48 Medical Decision Making MDM Narrative Medical decision making narrative: Patient presents with palpitations / heart racing. Used to experience this intermittently but episodes more frequent lately. In the ED she is afebrile with VS notable for hy
--- NOTE | 2023-12-17 22:18 | ECG_ITS ---
Measurements Intervals [place] Rate: 77 P: 14 MO: 224 QRS: -46 QRSD: 137 T: 10 QT: 409 QTc: 465 Interpretive Statements SINUS RHYTHM WITH FIRST DEGREE AV BLOCK LEFT AXIS DEVIATION LEFT ATRIAL ENLARGEMENT INTRAVENTRICULAR CONDUCTION DELAY LEFT VENTRICULAR HYPERTROPHY WITH ST-T CHANGE CONSIDER INFERIOR INFARCT, AGE INDETERMINATE CONSIDER ANTERIOR INFARCT, AGE INDETERMINATE ABNORMAL ECG COMPARED TO ECG 12/17/2023 16:55:29 FIRST DEGREE AV BLOCK NOW PRESENT Electronically Signed On 12-18-2023 8:07:57 CDT by Kuldeep Dumont D.O.
[2023-12-17 22:31] LABS: Basophils Absolute Auto 0.1 K/mm3 (0.0-0.1); Basophils Percent Auto 0.8 % (0.2-1.2); Eosinophils Absolute Auto 0.2 K/mm3 (0-0.3); Eosinophils Percent Auto 2.4 % (0-4.4); Hematocrit 34.8 % (37.0-47.0); Hemoglobin 11.7 g/dL (12.0-15.0); Immature Granulocyte Absolute 0.04 K/mm3 (0.00-0.031); Immature Granulocyte Percent A 0.4 % (0-0.5); Lymphocytes Absolute Auto 1.12 K/mm3 (0.9-3.2); Lymphocytes Percent Auto 12.4 % (18.3-44.2); Mean Corpuscular HGB Conc 33.6 g/dl (32-36); Mean Corpuscular Hemoglobin 30.3 pg (26-34); Mean Corpuscular Volume 90.2 fl (80-100); Mean Platelet Volume 10.6 fl (7.4-10.4); Monocytes Absolute Auto 0.4 K/mm3 (0.1-0.6); Monocytes Percent Auto 4.7 % (2.6-8.5); Neutrophils Absolute Auto 7.2 K/mm3 (1.3-6.7); Neutrophils Percent Auto 79.3 % (45.5-73.1); Platelet Count Result 375 k/mm3 (150-375); Red Blood Count 3.86 M/mm3 (4.2-5.4); Red Cell Distribution Width 14.3 % (11.5-14.5)
[2023-12-17 22:41] LABS: Alanine Aminotransferase 17 U/L (6-35); Albumin Level 4.1 g/dL (3.5-5.1); Alkaline Phosphatase 81 U/L (38-126); Anion Gap 5 mmol/L (4-12); Aspartate Amino Transferase 21 U/L (14-36); Bilirubin,Total 0.7 mg/dL (0.2-1.3); Blood Urea Nitrogen 11 mg/dL (7-17); Calcium 9.4 mg/dL (8.4-10.2); Carbon Dioxide 26 mmol/L (22-30); Chloride 106 mmol/L (98-107); Estimated CRCL calculation 51 ml/min; Estimated Glomerular Filt Rate > 60; Glucose 110 mg/dL (65-110); Potassium 3.3 mmol/L (3.4-5.0); Sodium 137 mmol/L (137-145)
[2023-12-17 22:52] LABS: Troponin I < 0.012 ng/mL (0.000-0.034)
[2023-12-17] MEDS: POTASSIUM BICARBONATE 25 MEQ TABEF PO (22:59)
[2023-12-17 23:08] LABS: Influenza A QL RT-PCR Negative (Negative); Influenza B QL RT-PCR Negative (Negative); RSV RNA, RT-PCR Negative (Negative); SARS-CoV-2 RNA PCR Negative (Negative)
[2023-12-17 23:20] LABS: D Dimer 0.52 ug/mL (<0.48)
[2023-12-18] VITALS (17 sets, daily range): BP systolic 170; BP diastolic 94; PULSE 70–99; RESP 14–25; O2SAT 94–98
== END 2023-12-18 07:24 | disposition home or self-care (01) ==
PROVIDERS: Emergency Provider Student in an Organized Health Care Education/Training Program; PCP Family Medicine
DX: R00.2 Palpitations (principal); D64.9 Anemia, unspecified; E87.6 Hypokalemia; D73.89 Other diseases of spleen; Z20.822 Contact with and (suspected) exposure to COVID-19; Z85.828 Personal history of other malignant neoplasm of skin; Z87.891 Personal history of nicotine dependence
CPT/HCPCS: 36415; 71046; 71275; 80053; 84443; 84484; 85025; 85380; 87637; 93005; 99284; A9270; Q9967

== ENCOUNTER 2023-12-22 11:15 | Outpatient (CLI) | payer MEDICARE, SELFPAY ==
[2023-12-22 11:25] LABS: Hematocrit 36.6 % (37.0-47.0); Hemoglobin 12.5 g/dL (12.0-15.0); Mean Corpuscular HGB Conc 34.2 g/dl (32-36); Mean Corpuscular Hemoglobin 30.8 pg (26-34); Mean Corpuscular Volume 90.1 fl (80-100); Mean Platelet Volume 10.4 fl (7.4-10.4); Platelet Count Result 372 k/mm3 (150-375); Red Blood Count 4.06 M/mm3 (4.2-5.4); Red Cell Distribution Width 13.9 % (11.5-14.5); White Blood Count 9.1 K/mm3 (4.5-10.0)
[2023-12-22 11:30] LABS: Blood Urea Nitrogen 9 mg/dL (8-26); Carbon Dioxide 29 mmol/L (22-30); Chloride 99 mmol/L (98-109); Estimated Glomerular Filt Rate > 60; Glucose 74 mg/dL (70-105); Ionized Calcium (POC) 1.22 mmol/L (1.11-1.31); Potassium 3.7 mmol/L (3.5-4.9); Sodium 140 mmol/L (138-146)
== END 2023-12-22 11:16 | disposition home or self-care (01) ==
LOC: ANHLAB 11:16
PROVIDERS: PCP Family Medicine; Visit Provider Internal Medicine Hematology & Oncology
DX: D47.3 Essential (hemorrhagic) thrombocythemia (principal)
CPT/HCPCS: 36415; 80047; 85027

== ENCOUNTER → 2024-01-12 15:03 | Outpatient (CLI) | payer MEDICARE, SELFPAY ==
--- NOTE | ~2024-01-12 | XR_ITS ---
XR knee RT min 4V 01/12/2024 15:21 Indication: Right knee pain Procedure: 4 views right knee Comparison: No prior studies for comparison. Findings: There is mild osteoarthritis. There is chondrocalcinosis. No significant joint effusion. No fracture or traumatic malalignment. Impression: 1: Mild osteoarthritis. Reviewed, dictated and finalized at location B. Impression: 1: Mild osteoarthritis.
== END ==
PROVIDERS: PCP Family Medicine; Visit Provider Family Medicine
DX: M17.11 Unilateral primary osteoarthritis, right knee (principal)
CPT/HCPCS: 73564

== ENCOUNTER 2024-03-29 10:52 | Outpatient (CLI) | payer MEDICARE, SELFPAY ==
[2024-03-29 11:14] LABS: Basophils Absolute Auto 0.1 K/mm3 (0.0-0.1); Basophils Percent Auto 1.2 % (0.2-1.2); Eosinophils Absolute Auto 0.2 K/mm3 (0-0.3); Eosinophils Percent Auto 2.4 % (0-4.4); Hematocrit 35.4 % (37.0-47.0); Immature Granulocyte Absolute 0.04 K/mm3 (0.00-0.031); Immature Granulocyte Percent A 0.4 % (0-0.5); Lymphocytes Absolute Auto 1.02 K/mm3 (0.9-3.2); Lymphocytes Percent Auto 10.2 % (18.3-44.2); Mean Corpuscular HGB Conc 33.9 g/dl (32-36); Mean Corpuscular Volume 88.5 fl (80-100); Mean Platelet Volume 10.3 fl (7.4-10.4); Monocytes Absolute Auto 0.5 K/mm3 (0.1-0.6); Monocytes Percent Auto 5.3 % (2.6-8.5); Neutrophils Absolute Auto 8.1 K/mm3 (1.3-6.7); Neutrophils Percent Auto 80.5 % (45.5-73.1); Platelet Count Result 378 k/mm3 (150-375); Red Cell Distribution Width 13.8 % (11.5-14.5)
[2024-03-29 11:18] LABS: Blood Urea Nitrogen 12 mg/dL (8-26); Carbon Dioxide 24 mmol/L (22-30); Chloride 104 mmol/L (98-109); Estimated Glomerular Filt Rate 54; Glucose 92 mg/dL (70-105); Ionized Calcium (POC) 1.19 mmol/L (1.11-1.31); Potassium 3.4 mmol/L (3.5-4.9); Sodium 141 mmol/L (138-146)
== END 2024-03-29 10:53 | disposition home or self-care (01) ==
LOC: ANHLAB 10:54
PROVIDERS: PCP Family Medicine; Visit Provider Internal Medicine Hematology & Oncology
DX: D47.3 Essential (hemorrhagic) thrombocythemia (principal)
CPT/HCPCS: 36415; 80047; 85025